=== PATIENT | male | born 1965 ===

== ENCOUNTER 2016-05-01 18:15 | Emergency (ER) | payer MEDICAID ==
[2016-05-01 18:32] VITALS: BP 119/66; PULSE 95; RESP 16; TEMP 97.9; O2SAT 96
--- NOTE | 2016-05-01 18:55 | UCPHY ---
H & P Patient Type: Established HPI/ROS: CHIEF COMPLAINT: Right leg pain. HISTORY OF PRESENT ILLNESS: The patient is a developmentally delayed 51-year- old male who presents with right leg pain since this morning. His caretakers and families report that while walking he appears to not use his right knee, favoring all of his weight onto the left. He had difficulty walking initially but this seems to be improving. There is no reports of fall or injury. He does have a history of hip fracture on the left from a fall. Furthere he has problems with CP related to his foot concerns. He visited a slitter scorer cut off operator 11 months ago and had rigght pes valgus at that time. He is unable to communicate himself and the history is thus limited. REVIEW OF SYSTEMS: Unobtainable due to patient's developmental delay. Past Medical/Surgical History: Developmental delay, iron deficiency anemia. Social History: Nonsmoker. Smoking Status: Never smoked Physical Exam: General Appearance: Alert, no distress. Afebrile. Normal phonation. No respiratory distress. Neurological: Ox3. No motor weakness. Sensation intact. Gait not tested secondary presenting complaint Skin: Warm and dry, no rashes. No signs of tinea pedis. Musculoskeletal: No joint swelling with respect to the right knee. There is no particular bony tenderness. The Chanel's is weakly positive with SPECT is some laxity however he does not appear to have pain with such thus I construed this is an old finding. The collateral ligaments are stable without any looseness. He has full flexion of the right knee without any click. Negative Pedro's. Extremities: No edema. Homans sign negative. No cords. Psychiatric: no aggitation with the exam. Constitutional: Initial Vital Signs Temperature (C) 36.6 C 05/01/16 18:27 Heart Rate 95 05/01/16 18:27 Respiratory Rate 16 05/01/16 18:27 Blood Pressure 119/66 05/01/16 18:27 O2 Sat (%) 96 05/01/16 18:27 O2 Delivery Mode Room Air Allergies/Adverse Reactions: No Known Allergies Allergy (Verified 05/01/16 18:30) Home Medications: Medication Instructions Recorded IRON 05/01/16 Vitamin C 05/01/16 Medical Decision Making - Diagnostics Imaging: Study: Right Knee X-ray Indication: pain Results: I viewed the images myself on the PACS system. My interpretation of the images is no acute injury. The radiologist interpretation is pending at the time of this dictation. ED Course/Re-evaluation: Right knee x-ray ordered. Differential Diagnosis: The differential diagnosis includes but is not limited to: Fracture, Sprain, Strain, Dislocation, Nerve injury Departure - Departure Disposition: Home, Routine, Self-Care Clinical Impression: Right leg pain Condition: Good Instructions: Leg Pain (ED) Additional Instructions: Take 650mg Tylenol every 6 hours for pain as needed for 5 days Follow up with your primary care provider next week for reevaluation. Return for any serious worsening of condition. Referrals: Unknown,Unknown [Primary Care Provider] - As per Instructions - PQRS PQRS Measurement: Not applicable. Report Scribed for: Jose G Somers Report Scribed by: Gallito Dunaway Date of Report: 05/01/16 Time of Report: 19:19 Physician Review and Approval Statement: 05/01/16 19:19 Portions of this note were transcribed by a medical record retrieval specialist. I personally performed a history, physical exam, medical decision making, and confirmed accuracy of information the transcribed note.
== END 2016-05-01 20:11 | disposition home or self-care (01) ==
LOC: CED 18:15
DX: M79.604 Pain in right leg (principal); R62.50 Unspecified lack of expected normal physiological development in childhood; D50.9 Iron deficiency anemia, unspecified
CPT/HCPCS: 73564-PO; 99214-PO; G0463-PO